=== PATIENT | female | born 1945 | race Caucasian/White ===

== ENCOUNTER 2020-04-04 01:25 | Outpatient (CLI) | payer MEDICARE, SELFPAY ==
[2020-04-04 19:05] LABS: SARS-CoV-2 RNA PCR Negative
== END 2020-04-04 01:26 | disposition home or self-care (01) ==
LOC: ANHCOVIDDT 01:25
PROVIDERS: PCP Family Medicine; Visit Provider Internal Medicine Gastroenterology
DX: Z01.812 Encounter for preprocedural laboratory examination (principal); Z20.828 Contact with and (suspected) exposure to other viral communicable diseases
CPT/HCPCS: 87635; C9803; U0003

== ENCOUNTER 2020-04-06 00:36 | Day surgery (SDC) | payer MEDICARE, SELFPAY ==
[2020-03-30 09:39] VITALS: BMI 25.8
--- NOTE | 2020-04-05 08:11 | P.PNAN_ITS ---
Anes - Initial Pre Proc Eval Procedure: Operation Date: 04/06/20 07:30 Proposed Procedures p Screening Colonoscopy - Carlos Castro MD Date/Time: 04/05/20 08:11 Surgeon: Carlos Castro MD Pre Op Diagnosis: Neoplasm Screening Patient Data Age: 75 Gender: F Height: 1.52 m Weight: 60 kg Allergies Allergy/AdvReac Type Severity Reaction Status Date / Time amoxicillin Allergy Unknown upset Verified 04/06/20 06:29 stomach azithromycin Allergy Unknown lip soaken Verified 04/06/20 06:29 cefprozil Allergy Unknown Pt does Verified 04/06/20 06:29 not remember reaction cephalexin Allergy Unknown Pt does Verified 04/06/20 06:29 not remember reaction erythromycin base Allergy Unknown Skin Verified 04/06/20 06:29 Reaction Z PACK Allergy Mild SWELLING Uncoded 04/06/20 06:29 OF LIPS ERYTHROMYCIN, AMOXICILLIN,NO Allergy Unknown Unknown Uncoded 04/06/20 06:29 LATEX Home Medications Medication Instructions Recorded Confirmed Type fluticasone propionate 50 2 spray NASAL DAILY #54.6 ml 06/08/19 04/06/20 Rx mcg/actuation nasal spray,suspension atorvastatin [Lipitor] 20 mg PO DAILY 03/30/20 04/06/20 History Patient hx anesthesia problems: none Family hx anesthesia problems: none PMFSH Past Medical History Medical History (Updated 04/06/20 @ 07:02 by Jp Ng DO) Hyperlipidemia Family History Family History Mother Diabetes mellitus Hypertension Family history of elevated blood lipids Family history of cardiovascular disease Family history of Alzheimer's disease Family history of hearing loss Father Family history of colitis Family history of sudden Social History Social History Smoking status: Never smoker Second hand tobacco smoke exposure: No Alcohol intake: never Living arrangements: with family Gender identity (if verbalized by the patient): Female Sexual Orientation (if Verbalized by the Patient): Straight or Heterosexual Spiritual care concerns: No Anes - Eval Final PreProcedure Day of Procedure 04/05/20 08:11 Patient weight: overweight Heart: regular rate and rhythm Lungs: clear to auscultation and normal air movement Airway: Mallampati scale class II Neurological: alert and oriented Last oral intake: >/= 8 hours ASA classification: II Emergent: no Anesthetic plan: proceed Anesthesia type and monitoring: general GIVS and standard monitoring Informed Consent: The patient's anesthetic plan and its attendant risks and benefits were discussed with the patient/family/POA. Questions were solicited and answers provided to the satisfaction of the patient/family/POA.
[2020-04-06 06:31] VITALS: BP 116/61; PULSE 64; RESP 16; TEMP 36.5; O2SAT 97
[2020-04-06] MEDS: LACTATED RINGERS 1,000 ML 150 ML IV CONT (06:41)
--- NOTE | 2020-04-06 08:03 | WPDGICN ---
Assessment and Plan Assessment and plan (1) Encounter for screening colonoscopy: Code(s): Z12.11 - Encounter for screening for malignant neoplasm of colon Status: Acute Assessment and Plan: Patient presents for screening colonoscopy. She appears to be at average risk. High-fiber diet advised. Further recommendations may be given after endoscopy. GI Consult Note Consult date/time: 04/06/20 08:03 HPI: Nyla Tomas is a 75 year old female Seen at the request of Dr. Fredrick Bellamy. patient presents for neoplasia screening. Her current weight appetite bowel movements are normal. She denies abdominal pain. She has had no bleeding. She does report brief episode of diarrhea earlier this summer. This subsequently abated. Family history is significant her sister has ulcerative colitis. There are no family members with polyps or colon cancer. Review of Systems Review of Systems: All systems reviewed & are unremarkable except as noted in HPI and below PMFSH Past Medical History Medical History (Updated 04/06/20 @ 08:05 by Carlos Castro MD) Hyperlipidemia Family History Family History Mother Diabetes mellitus Hypertension Family history of elevated blood lipids Family history of cardiovascular disease Family history of Alzheimer's disease Family history of hearing loss Father Family history of colitis Family history of sudden Social History Social History Smoking status: Never smoker Second hand tobacco smoke exposure: No Alcohol intake: never Living arrangements: with family Gender identity (if verbalized by the patient): Female Sexual Orientation (if Verbalized by the Patient): Straight or Heterosexual Spiritual care concerns: No Meds Home Medications and Allergies Home Medications Medication Instructions Recorded Confirmed Type fluticasone propionate 50 2 spray NASAL DAILY #54.6 ml 06/08/19 04/06/20 Rx mcg/actuation nasal spray,suspension atorvastatin [Lipitor] 20 mg PO DAILY 03/30/20 04/06/20 History Allergies Allergy/AdvReac Type Severity Reaction Status Date / Time amoxicillin Allergy Unknown upset Verified 04/06/20 06:29 stomach azithromycin Allergy Unknown lip soaken Verified 04/06/20 06:29 cefprozil Allergy Unknown Pt does Verified 04/06/20 06:29 not remember reaction cephalexin Allergy Unknown Pt does Verified 04/06/20 06:29 not remember reaction erythromycin base Allergy Unknown Skin Verified 04/06/20 06:29 Reaction Z PACK Allergy Mild SWELLING Uncoded 04/06/20 06:29 OF LIPS ERYTHROMYCIN, AMOXICILLIN,NO Allergy Unknown Unknown Uncoded 04/06/20 06:29 LATEX Vital Signs Vital Signs - 24 hr 04/06/20 06:31 Temperature 97.7 F Pulse Rate 64 Respiratory Rate 16 Blood Pressure 116/61 Pulse Oximetry 97 Exam Narrative: Exam Narrative: Physical exam reveals patient to be alert. Vital signs stable. HEENT exam unremarkable. Patient is anicteric. Lungs are clear to auscultation and percussion. Heart is without murmur or extra sounds. Abdominal exam bowel sounds are present soft nontender with no organomegaly. Digital external rectal exam normal.
[2020-04-06 08:06] VITALS: BP 98/53; PULSE 68; RESP 19; O2SAT 97
[2020-04-06 08:16] VITALS: BP 107/57; PULSE 62; RESP 13; O2SAT 96
[2020-04-06 08:26] VITALS: BP 113/58; PULSE 60; RESP 15; O2SAT 98
[2020-04-06 08:36] VITALS: BP 115/67; PULSE 61; RESP 18; O2SAT 99
== END 2020-04-06 08:42 | disposition home or self-care (01) ==
PROVIDERS: PCP Family Medicine; Visit Provider Internal Medicine Gastroenterology
PROC: 0DJD8ZZ Inspection of Lower Intestinal Tract, Via Natural or Artificial Opening Endoscopic (ICD-10-PCS; CPT 45378; principal; 2020-04-06 07:30)
DX: Z12.11 Encounter for screening for malignant neoplasm of colon (principal); K64.8 Other hemorrhoids; E78.5 Hyperlipidemia, unspecified
CPT/HCPCS: G0121; J2704; J7120